=== PATIENT | female | born 1995 | race Caucasian/White ===

== ENCOUNTER 2021-08-23 14:06 | Emergency (ER) | payer OTHER ==
[~2021-08-23] VITALS: Ht 165.1 cm; Wt 104.5 kg
[2021-08-23] MEDS ORDERED: KETOROLAC TROMETHAMINE 30 MG/ML VIAL IVP ONE (14:45)
[2021-08-23] MEDS ORDERED: SODIUM CHLORIDE 0.9% 1,000 ML IV ONE (14:45)
[2021-08-23] MEDS ORDERED: ONDANSETRON HCL 4 MG/2 ML VIAL IVP ONE (14:45)
[2021-08-23 15:19] LABS: BASOPHILS % (AUTO) 0.5 % (0.0-2.0); EOSINOPHILS % (AUTO) 1.8 % (1.0-6.0); HEMATOCRIT 36.6 % (36-46); HEMOGLOBIN 12.4 g/dL (12.0-16.0); LYMPHOCYTES # (AUTO) 2.2 K/uL (1.0-4.8); MEAN CORPUSCULAR HEMOGLOBIN 29.6 pg (26.0-34.0); MEAN CORPUSCULAR VOLUME 87 fL (80-100); MONOCYTES # (AUTO) 0.7 K/uL (0.1-1.0); MONOCYTES % (AUTO) 9.9 % (2.0-9.0); NEUTROPHILS # (AUTO) 3.7 K/uL (1.8-7.7); NEUTROPHILS % (AUTO) 54.8 % (40.0-70.0); PLATELET COUNT (AUTO) 316 K/uL (150-450); RED CELL DISTRIBUTION WIDTH 14.4 % (11.5-14.5)
[2021-08-23] MEDS ORDERED: MAG HYDROX/AL HYDROX/SIMETH ES 30 ML SUSPENSION UDCUP PO ONE (15:45)
[2021-08-23] MEDS ORDERED: ACETAMINOPHEN 500 MG TABLET PO ONE (15:45)
[2021-08-23 16:43] LABS: ANION GAP 7 mmol/L (8-16); CALCIUM, TOTAL 8.7 mg/dL (8.8-10.5); CARBON DIOXIDE 27 mmol/L (22-29); CHLORIDE 104 mmol/L (98-107); CREATININE 0.64 mg/dL (0.60-1.30); GLOMERULAR FILTR. RATE CALC > 60 mL/min (>60); GLUCOSE,RANDOM 93 mg/dL (70-110); POTASSIUM 3.9 mmol/L (3.5-5.1); SODIUM SERUM 138 mmol/L (136-145); UREA NITROGEN, BLOOD 9 mg/dL (7-18)
[2021-08-23 16:51] LABS: ALANINE AMINOTRANSFERASE 36 U/L (12-78); ALBUMIN 3.4 g/dL (3.4-5.0); ALKALINE PHOSPHATASE 55 U/L (46-116); ASPARTATE AMINOTRANSFERASE 19 U/L (15-37); BILIRUBIN,TOTAL 0.4 mg/dL (0.1-1.0); LIPASE 66 U/L (73-393); TOTAL PROTEIN, SERUM 7.4 g/dL (6.4-8.2)
[2021-08-23] MEDS ORDERED: ACET-66 PO (17:07)
[2021-08-23] MEDS ORDERED: MAAL30 PO (17:07)
[2021-08-23] MEDS ORDERED: FAMO20 PO (17:07)
[2021-08-23] MEDS ORDERED: ONDA-104 PO (17:07)
[2021-08-23 17:22] VITALS: BP 126/78
== END 2021-08-23 17:24 | disposition home or self-care (01) ==
LOC: EMS 14:06
DX: K29.70 Gastritis, unspecified, without bleeding (principal); F17.210 Nicotine dependence, cigarettes, uncomplicated
CPT/HCPCS: 36415; 80053; 83690; 84703; 85025; 96361; 96374; 96375; 99284; J1885; J2405; J7030

== ENCOUNTER 2021-11-09 13:54 | Emergency (ER) | payer OTHER ==
[~2021-11-09] VITALS: Ht 165.1 cm; Wt 103.6 kg
[~2021-11-09 13:54] MED LIST: ACET-66 PO; FAMO20 PO; MAAL30 PO; ONDA-104 PO
[2021-11-09 15:33] LABS: APPEARANCE,URINE HAZY (CLEAR); BILIRUBIN,URINE NEGATIVE (NEGATIVE); GLUCOSE, URINE (UA) NEGATIVE (NEGATIVE); KETONES,URINE NEGATIVE (NEGATIVE); LEUKOCYTE ESTERASE ,URINE TRACE (NEGATIVE); NITRATE,URINE NEGATIVE (NEGATIVE); OCCULT BLOOD,URINE NEGATIVE (NEGATIVE); PROTEIN,URINE NEGATIVE (NEGATIVE); SPECIFIC GRAVITIY, URINE 1.024 (1.003-1.030); UROBILINOGEN,URINE <=1.0 mg/dL (<=1.0)
[2021-11-09 15:46] LABS: BACTERIA,URINE Few /HPF (None Seen); RBC,URINE None Seen /HPF (0-2); SQUAMOUS EPITHELIAL CELL,UR Few /LPF (None Seen)
[2021-11-09] MEDS ORDERED: DOXY-354 PO (16:47)
[2021-11-09] MEDS ORDERED: MAG-164 PO (16:54)
[2021-11-09] MEDS: DOXYCYCLINE HYCLATE 100 MG TABLET PO ONE (16:58)
[2021-11-09] MEDS: LIDOCAINE/PF 1% 2 ML VIAL IM ONE (16:59)
[2021-11-09] MEDS: CefTRIAXone SODIUM 1 GM/VIAL IM ONE (16:59)
[2021-11-09 17:58] VITALS: BP 128/74
== END 2021-11-09 17:58 | disposition home or self-care (01) ==
LOC: EMS 13:54
DX: N72 Inflammatory disease of cervix uteri (principal); F17.210 Nicotine dependence, cigarettes, uncomplicated; Z90.49 Acquired absence of other specified parts of digestive tract
CPT/HCPCS: 81001; 81025; 87210; 87491; 87591; 96372; 99284; J0696; J3490; 99283

== ENCOUNTER 2022-01-06 00:16 | Emergency (ER) | payer OTHER ==
[~2022-01-06] VITALS: Ht 165.1 cm; Wt 104.5 kg
[~2022-01-06 00:16] MED LIST changes: +DOXY-354 PO; -MAAL30 PO; +MAG-164 PO
[2022-01-06 02:05] LABS: COVID AG,FIA SOURCE NASAL SWAB
[2022-01-06 02:15] VITALS: BP 121/75
== END 2022-01-06 02:40 | disposition home or self-care (01) ==
LOC: EMS 00:21
DX: O26.811 Pregnancy related exhaustion and fatigue, first trimester (principal); O26.891 Other specified pregnancy related conditions, first trimester; R11.0 Nausea; F17.210 Nicotine dependence, cigarettes, uncomplicated; Z3A.10 10 weeks gestation of pregnancy; Z90.49 Acquired absence of other specified parts of digestive tract; Z20.822 Contact with and (suspected) exposure to COVID-19
CPT/HCPCS: 99283